=== PATIENT | male | born 1955 | race African-American/Black ===

== ENCOUNTER 2020-04-18 16:51 | Emergency (ER) | payer MEDICARE ==
[~2020-04-18] VITALS: Ht 175.3 cm; Wt 108.0 kg
--- NOTE | 2020-04-18 16:55 | PHYS DOC ---
General Adult EDM: Chief Complaint: worsen slurred speech, HTN HPI: HPI: Patient is a 64-year-old male who was sent here from [facility] due to worsening slurred speech and hypertension that he was found at 5 AM this morning. Somehow they decided to send him here more than 10 hours after. It was reported that patient went to sleep at 10:00 last night and he was at his baseline which include right-sided weakness and slurred speech. [facility] reported that his slurred speech was worsened this morning when he woke up. 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 Patient has history of diabetes, hypertension, paranoid schizophrenia. Patient denies any chest pain, no fever. Patient does have a dry cough started this morning. Patient said he did not have a stroke, he feels much better now, he wanted to be released SAMUEL back to his detention. Patient has a history of hypertension, he is on antihypertensive medication in a detention. Review of Systems: Review of Systems: Constitutional: Denies fever or chills Eyes: Denies change in visual acuity HENT: Denies nasal congestion or sore throat Respiratory: Positive for dry cough, no shortness of air. Cardiovascular: Denies chest pain or edema GI: Denies abdominal pain, nausea, vomiting, bloody stools or diarrhea : Denies dysuria Musculoskeletal: Denies back pain or joint pain Integument: Denies rash Neurologic: Denies headache, focal weakness or sensory changes Endocrine: Denies polyuria or polydipsia Lymphatic: Denies swollen glands Psychiatric: Denies depression or anxiety Heart Score: Risk Factors: Risk Factors: DM, Current or recent (<one month) smoker, HTN, HLP, family history of CAD, obesity. Risk Scores: Score 0 - 3: 2.5% MACE over next 6 weeks - Discharge Home Score 4 - 6: 20.3% MACE over next 6 weeks - Admit for Clinical Observation Score 7 - 10: 72.7% MACE over next 6 weeks - Early Invasive Strategies Physical Exam: PE: Constitutional: Well developed, well nourished, no acute distress, non-toxic appearance. [] HENT: Normocephalic, atraumatic, bilateral external ears normal, oropharynx moist, no oral exudates, nose normal. [] Eyes: PERRLA, EOMI, conjunctiva normal, no discharge. [] Neck: Normal range of motion, no tenderness, supple, no stridor. [] Cardiovascular:Heart rate regular rhythm, no murmur [] Lungs & Thorax: Bilateral breath sounds clear to auscultation [] Abdomen: Bowel sounds normal, soft, no tenderness, no masses, no pulsatile masses. [] Skin: Warm, dry, no erythema, no rash. [] Back: No tenderness, no CVA tenderness. [] Extremities: No tenderness, no cyanosis, no clubbing, ROM intact, no edema. [] Neurologic: Patient is awake alert oriented. His speech is clear, he moves all extremities without any problem the right side appears to be a little weaker than the left side which is his baseline. Psychologic: Affect normal, judgement normal, mood normal. [] Current Patient Data: Labs: Laboratory Tests Test 04/18/20 17:15 White Blood Count 6.6 x10^3/uL Red Blood Count 3.67 x10^6/uL Hemoglobin 10.5 g/dL Hematocrit 32.2 % Mean Corpuscular Volume 88 fL Mean Corpuscular Hemoglobin 29 pg Mean Corpuscular Hemoglobin Concent 33 g/dL Red Cell Distribution Width 15.0 % Platelet Count 279 x10^3/uL Neutrophils (%) (Auto) 43 % Lymphocytes (%) (Auto) 45 % Monocytes (%) (Auto) 7 % Eosinophils (%) (Auto) 4 % Basophils (%) (Auto) 1 % Neutrophils # (Auto) 2.8 x10^3uL Lymphocytes # (Auto) 2.9 x10^3/uL Monocytes # (Auto) 0.5 x10^3/uL Eosinophils # (Auto) 0.3 x10^3/uL Basophils # (Auto) 0.0 x10^3/uL Prothrombin Time 9.7 SEC Prothromb Time International Ratio 0.9 Activated Partial Thromboplast Time 27 SEC Sodium Level 138 mmol/L Potassium Level 4.1 mmol/L Chloride Level 102 mmol/L Carbon Dioxide Level 25 mmol/L Anion Gap 11 Blood Urea Nitrogen 18 mg/dL Creatinine 1.9 mg/dL Estimated GFR (Cockcroft-Gault) 36.0 BUN/Creatinine Ratio 9 Glucose Level 240 mg/dL Calcium Level 9.3 mg/dL Magnesium Level 1.9 mg/dL Total Bilirubin 0.1 mg/dL Aspartate Amino Transf (AST/SGOT) 15 U/L Alanine Aminotransferase (ALT/SGPT) 22 U/L Alkaline Phosphatase 84 U/L Troponin I Quantitative < 0.017 ng/mL WD-Nos-H-Type Natriuretic Peptide 38 pg/mL Total Protein 7.7 g/dL Albumin 3.3 g/dL Albumin/Globulin Ratio 0.8 Current Medications Medications (Trade) Dose Ordered Sig/Arnoldo Route PRN Reason Start Time Stop Time Status Last Admin Dose Admin Hydralazine HCl (Apresoline) 10 mg 1X ONCE IV 04/18/20 18:00 04/18/20 18:01 DC 04/18/20 18:08 EKG: EKG: EKG was done at 1709, heart rate of 65 bpm, normal sinus rhythm, no ST segment elevation. [] Radiology/Procedures: Radiology/Procedures: [][place] [address] IMAGING REPORT Signed PATIENT: JULIUS NICHOLSON ACCOUNT: [id number] : 1955 LOCATION: ER AGE: 64 SEX: M EXAM STATUS: PRE ER ORD. PHYSICIAN: KEILY LEON DO REASON: confusion, slurred speech, CODE STROKE PROCEDURE: CT CODE STROKE HEAD WO EXAM: CT Head without IV contrast INDICATION: Reason: confusion, slurred speech, CODE STROKE / Spl. Instructions: / History: TECHNIQUE: Multi-detector row CT images were obtained of the head without the use of IV contrast. All CT scans performed at this facility utilize dose optimization techniques as appropriate to the exam, including the following: Automated exposure control and adjustment of the mA and/or KV according to patient size (this includes techniques or standardized protocols for targeted exams where dose is indication/reason for exam). COMPARISON: None FINDINGS: BRAIN PARENCHYMA: No evidence of acute intraparenchymal hemorrhage or infarct. Generalized parenchymal volume loss and white matter low density compatible chronic ischemic microvascular changes present in association with bilateral lucencies in the basal ganglia consistent with chronic lacunar infarcts. VENTRICLES & EXTRA-AXIAL SPACES: Ventricles are enlarged in proportion to the degree of parenchymal volume loss present. Basilar cisterns are patent. No pathologic extra-axial fluid collection or mass. ORBITS: Orbital contents are unremarkable. SINUSES: Visualized paranasal sinuses and mastoid air cells are clear. OSSEOUS & SOFT TISSUES: Calvarium and skull base are intact. IMPRESSION: No acute intracranial pathology. FOR INTERNAL CODING PURPOSES Critical result: Findings discussed with KEILY LEON at 04/18/2020 5:08 PM. RESULT CODE: (C) Electronically signed by: All Simms MD (04/18/2020 5:09 PM) [id number] DICTATED AND SIGNED BY: ALL SIMMS MD DATE: 04/18/20 1709 CC: KEILY LEON DO ~ Course & Med Decision Making: Course & Med Decision Making Pertinent Labs and Imaging studies reviewed. (See chart for details) Patient is a 64-year-old man who was sent here from the detention due to worsening slow speech and hypertension. CT scan head did not show any acute problem. Patient blood pressure was elevated, he was given hydralazine in the ER, his blood pressure improved, patient want to be released from the ER SAMUEL and back to his detention. Patient denies any chest pain, no headache. Patient was talking with clear speech. Dragon Disclaimer: Glide Disclaimer: This electronic medical record was generated, in whole or in part, using a voice recognition dictation system. Departure Departure: Impression: Primary Impression: Hypertension Disposition: 01 HOME/RESIDENCE PRIOR TO ADM Condition: IMPROVED Patient Instructions: Hypertension Additional Instructions: Thank you for visiting our Emergency Department. We appreciate you trusting us with your care. If any additional problems come up don't hesitate to return to visit us. Please follow up with your primary care provider so they can plan additional care if needed and know about the problem that you had. If symptoms worsen come back to the Emergency Department. Any concerning symptoms that start such as chest pain, shortness of air, weakness or numbness on one side of the body, running high fevers or any other concerning symptoms return to the ER. Justification of Admission: Justification of Admission: Justification of Admission Dx: N/A KEILY LEON DO Apr 18, 2020 16:55
--- NOTE | 2020-04-18 17:12 | RAD ---
EXAM: CT Head without IV contrast INDICATION: Reason: confusion, slurred speech, CODE STROKE / Spl. Instructions: / History: TECHNIQUE: Multi-detector row CT images were obtained of the head without the use of IV contrast. All CT scans performed at this facility utilize dose optimization techniques as appropriate to the exam, including the following: Automated exposure control and adjustment of the mA and/or KV according to patient size (this includes techniques or standardized protocols for targeted exams where dose is indication/reason for exam). COMPARISON: None FINDINGS: BRAIN PARENCHYMA: No evidence of acute intraparenchymal hemorrhage or infarct. Generalized parenchymal volume loss and white matter low density compatible chronic ischemic microvascular changes present in association with bilateral lucencies in the basal ganglia consistent with chronic lacunar infarcts. VENTRICLES & EXTRA-AXIAL SPACES: Ventricles are enlarged in proportion to the degree of parenchymal volume loss present. Basilar cisterns are patent. No pathologic extra-axial fluid collection or mass. ORBITS: Orbital contents are unremarkable. SINUSES: Visualized paranasal sinuses and mastoid air cells are clear. OSSEOUS & SOFT TISSUES: Calvarium and skull base are intact. IMPRESSION: No acute intracranial pathology. FOR INTERNAL CODING PURPOSES Critical result: Findings discussed with KEILY LEON at 04/18/2020 5:08 PM. RESULT CODE: (C) Electronically signed by: Marci Simms MD (04/18/2020 5:09 PM) [id number]
[2020-04-18 17:38] LABS: BASO % 1 % (0-3); EOS # 0.3 x10^3/uL (0.0-0.7); EOS % 4 % (0-3); HEMATOCRIT 32.2 % (39.0-53.0); HEMOGLOBIN 10.5 g/dL (13.0-17.5); LYMPH # 2.9 x10^3/uL (1.0-4.8); LYMPH % 45 % (24-48); MEAN CORPUSCULAR HEMOGLOBIN 29 pg (25-35); MEAN CORPUSCULAR HGB CONC 33 g/dL (31-37); MEAN CORPUSCULAR VOLUME 88 fL (79-100); MONO # 0.5 x10^3/uL (0.0-1.1); MONO % 7 % (0-9); NEUT # 2.8 x10^3uL (1.8-7.7); NEUT % 43 % (31-73); PLATELET COUNT 279 x10^3/uL (140-400); RED BLOOD COUNT 3.67 x10^6/uL (4.30-5.70); WHITE BLOOD COUNT 6.6 x10^3/uL (4.0-11.0)
[2020-04-18 17:47] LABS: CALCIUM 9.3 mg/dL (8.5-10.1); CREATININE 1.9 mg/dL (0.7-1.3); POTASSIUM 4.1 mmol/L (3.5-5.1)
[2020-04-18 17:59] LABS: ALBUMIN 3.3 g/dL (3.4-5.0); ALBUMIN/GLOBULIN RATIO 0.8 (1.0-1.7); MAGNESIUM 1.9 mg/dL (1.8-2.4); TOTAL BILIRUBIN 0.1 mg/dL (0.2-1.0); TOTAL PROTEIN 7.7 g/dL (6.4-8.2)
[2020-04-18] MEDS ORDERED: hydrALAZINE 20 MG/ML VIAL. IV ONE (18:00)
--- NOTE | 2020-04-18 18:00 | EKG ---
[address] [address] Test Date: 2020-04-18 Test Time: 17:09:47 Pat Name: JULIUS NICHOLSON Department: Room: Gender: M Visual Merchandising Manager: : 1955 Requested By: KEILY LEON Order Number: [id number] Reading MD: David Good MD Measurements Intervals Steward Rate: 65 P: 69 GA: 192 QRS: 36 QRSD: 108 T: 70 QT: 402 QTc: 423 Interpretive Statements SINUS RHYTHM Electronically Signed On 04-19-2020 9:12:31 CDT by David Good MD
[2020-04-18 19:00] VITALS: BP 170/83
== END 2020-04-18 19:23 | disposition home or self-care (01) ==
LOC: ER 16:51
DX: I10 Essential (primary) hypertension (principal); E11.9 Type 2 diabetes mellitus without complications; F20.9 Schizophrenia, unspecified
CPT/HCPCS: 36415; 70450; 80053; 83735; 83880; 84484; 85025; 85610; 85730; 93005; 99285; J0360

== ENCOUNTER 2021-02-12 17:47 | Emergency (ER) | payer MEDICARE, OTHER ==
[~2021-02-12] VITALS: Ht 175.3 cm; Wt 97.6 kg
[2021-02-12] MEDS ORDERED: IBUPROFEN 600 MG TABLET. PO ONE (18:30)
[2021-02-12 18:40] LABS: BASO # 0.1 x10^3/uL (0.0-0.2); BASO % 1 % (0-3); EOS # 0.1 x10^3/uL (0.0-0.7); EOS % 1 % (0-3); HEMATOCRIT 32.4 % (39.0-53.0); HEMOGLOBIN 10.8 g/dL (13.0-17.5); LYMPH # 1.7 x10^3/uL (1.0-4.8); LYMPH % 16 % (24-48); MEAN CORPUSCULAR HEMOGLOBIN 30 pg (25-35); MEAN CORPUSCULAR HGB CONC 33 g/dL (31-37); MEAN CORPUSCULAR VOLUME 89 fL (79-100); MONO # 1.2 x10^3/uL (0.0-1.1); MONO % 11 % (0-9); NEUT # 7.4 x10^3uL (1.8-7.7); NEUT % 71 % (31-73); PLATELET COUNT 251 x10^3/uL (140-400); RED BLOOD COUNT 3.65 x10^6/uL (4.30-5.70); RED CELL DISTRIBUTION WIDTH 14.2 % (11.5-14.5); WHITE BLOOD COUNT 10.5 x10^3/uL (4.0-11.0)
[2021-02-12 18:51] LABS: ALBUMIN 4.1 g/dL (3.4-5.0); ALBUMIN/GLOBULIN RATIO 1.2 (1.0-1.7); CALCIUM 9.5 mg/dL (8.5-10.1); CREATININE 1.8 mg/dL (0.7-1.3); GFR 46.2; TOTAL BILIRUBIN 0.4 mg/dL (0.2-1.0); TOTAL PROTEIN 7.6 g/dL (6.4-8.2)
--- NOTE | 2021-02-12 19:10 | PHYS DOC ---
Past History Past Medical History: CVA, Diabetes, GERD, Glaucoma, Hypertension (JUAN MENDEZ APRN) Past Surgical History: No Surgical History Additional Past Surgical Histo: LEFT TOE AMP (JUAN MENDEZ APRN) Alcohol Use: None (JUAN MENDEZ APRN) General Adult EDM: Chief Complaint: ALTERED MENTAL STATUS HPI: HPI: Patient is a 65-year-old male who presents with altered mental status. Patient is a resident of [facility]. Staff states that patient started acting different than normal. Last known okay was about an hour before arriving in the emergency room. Patient did have a fever on arrival. Temperature was 100.6. Patient has a history of CVA with left-sided residual weakness. Staff states "he was slower to respond than normal". Patient was alert and oriented x3. Blood sugar was 180. History of diabetes, hypertension. (JUAN MENDEZ APRN) Review of Systems: Review of Systems: Constitutional: Reports fever and chills Eyes: Denies change in visual acuity HENT: Denies nasal congestion or sore throat Respiratory: Denies cough or shortness of breath Cardiovascular: Denies chest pain or edema GI: Denies abdominal pain, nausea, vomiting, bloody stools or diarrhea : Denies dysuria Musculoskeletal: Denies back pain or joint pain Integument: Denies rash Neurologic: Denies headache, focal weakness or sensory changes Endocrine: Denies polyuria or polydipsia Lymphatic: Denies swollen glands Psychiatric: Denies depression or anxiety (JUAN MENDEZ APRN) Current Medications: Current Meds: Current Medications Medications (Trade) Dose Ordered Sig/Arnoldo Start Time Stop Time Status Last Admin Dose Admin Ibuprofen (Motrin) 600 mg 1X ONCE 02/12/21 18:30 02/12/21 18:31 DC Lorazepam (Ativan Inj) 1 mg 1X ONCE 02/12/21 19:00 02/12/21 19:03 DC (JUAN MENDEZ APRN) Allergies: Allergies: Allergies Coded Allergies Type Severity Reaction Last Updated Verified No Known Drug Allergies 04/18/20 No (JUAN MENDEZ APRN) Physical Exam: PE: Constitutional: Well developed, well nourished, no acute distress, non-toxic appearance. [] HENT: Normocephalic, atraumatic, bilateral external ears normal, oropharynx moist, no oral exudates, nose normal. [] Eyes: PERRLA, EOMI, conjunctiva normal, no discharge. [] Neck: Normal range of motion, no tenderness, supple, no stridor. [] Cardiovascular:Heart rate regular rhythm, no murmur [] Lungs & Thorax: Bilateral breath sounds clear to auscultation [] Abdomen: Bowel sounds normal, soft, no tenderness, no masses, no pulsatile masses. [] Skin: Warm, dry, no erythema, no rash. [] Back: No tenderness, no CVA tenderness. [] Extremities: No tenderness, no cyanosis, no clubbing, ROM intact, no edema. [] Neurologic: Alert and oriented X 3, normal motor function, normal sensory function, left-sided weakness from previous CVA Psychologic: Affect normal, judgement normal, mood normal. [] (JUAN MENDEZ APRN) Current Patient Data: Labs: Laboratory Tests Test 02/12/21 18:03 White Blood Count 10.5 x10^3/uL (4.0-11.0) Red Blood Count 3.65 x10^6/uL (4.30-5.70) L Hemoglobin 10.8 g/dL (13.0-17.5) L Hematocrit 32.4 % (39.0-53.0) L Mean Corpuscular Volume 89 fL (79-100) Mean Corpuscular Hemoglobin 30 pg (25-35) Mean Corpuscular Hemoglobin Concent 33 g/dL (31-37) Red Cell Distribution Width 14.2 % (11.5-14.5) Platelet Count 251 x10^3/uL (140-400) Neutrophils (%) (Auto) 71 % (31-73) Lymphocytes (%) (Auto) 16 % (24-48) L Monocytes (%) (Auto) 11 % (0-9) H Eosinophils (%) (Auto) 1 % (0-3) Basophils (%) (Auto) 1 % (0-3) Neutrophils # (Auto) 7.4 x10^3uL (1.8-7.7) Lymphocytes # (Auto) 1.7 x10^3/uL (1.0-4.8) Monocytes # (Auto) 1.2 x10^3/uL (0.0-1.1) H Eosinophils # (Auto) 0.1 x10^3/uL (0.0-0.7) Basophils # (Auto) 0.1 x10^3/uL (0.0-0.2) Sodium Level 142 mmol/L (136-145) Potassium Level 4.0 mmol/L (3.5-5.1) Chloride Level 104 mmol/L (98-107) Carbon Dioxide Level 25 mmol/L (21-32) Anion Gap 13 (6-14) Blood Urea Nitrogen 17 mg/dL (8-26) Creatinine 1.8 mg/dL (0.7-1.3) H Estimated GFR (Cockcroft-Gault) 46.2 BUN/Creatinine Ratio 9 (6-20) Glucose Level 138 mg/dL (70-99) H Calcium Level 9.5 mg/dL (8.5-10.1) Total Bilirubin 0.4 mg/dL (0.2-1.0) Aspartate Amino Transferase (AST) 13 U/L (15-37) L Alanine Aminotransferase (ALT) 18 U/L (16-63) Alkaline Phosphatase 83 U/L (46-116) Total Protein 7.6 g/dL (6.4-8.2) Albumin 4.1 g/dL (3.4-5.0) Albumin/Globulin Ratio 1.2 (1.0-1.7) Vital Signs: Vital Signs Date Time Temp Pulse Resp B/P (MAP) Pulse Ox O2 Delivery O2 Flow Rate FiO2 02/12/21 18:35 100.6 98 18 164/76 (105) 98 Room Air (JUAN MENDEZ APRN) EKG: EKG: [] (JUAN MENDEZ APRN) Radiology/Procedures: Radiology/Procedures: []Exam Date: 02/12/2021 7:[address] HEAD/BRAIN WO Indication: Reason: AMS / Spl. Instructions: / History: . TECHNIQUE: Head CT was performed without intravenous contrast. One or more of the following dose reduction techniques were utilized: *Automated exposure control (AEC) *Adjustment of mA and/or kV according to patient size *Use of iterative reconstruction technique *CT scan done according to ALARA, or ALARA/IMAGE GENTLY COMPARISON: April 18, 2020 FINDINGS: The ventricles and sulci are prominent consistent with cerebral volume loss. Patchy ill-defined low attenuation areas in the subcortical and periventricular white matter bilaterally are consistent with microvascular disease. There is no evidence of acute intracranial hemorrhage, extra-axial collection, mass effect, midline shift, or acute territorial infarct. No lesion of the skull base or the calvarium is seen. The visualized paranasal sinuses, mastoid air cells and orbits are normal in appearance. IMPRESSION: No evidence for acute intracranial abnormality. Volume loss and microvascular disease. Electronically signed by: Spenser Meneses MD (02/12/2021 7:26 PM) [facility] (JUAN MENDEZ APRN) Heart Score: C/O Chest Pain: No Risk Factors: Risk Factors: DM, Current or recent (<one month) smoker, HTN, HLP, family history of CAD, obesity. Risk Scores: Score 0 - 3: 2.5% MACE over next 6 weeks - Discharge Home Score 4 - 6: 20.3% MACE over next 6 weeks - Admit for Clinical Observation Score 7 - 10: 72.7% MACE over next 6 weeks - Early Invasive Strategies (JUAN MENDEZ APRN) Course & Med Decision Making: Course & Med Decision Making Pertinent Labs and Imaging studies reviewed. (See chart for details) [] 65-year-old male [facility] Staff is stating that patient was acting slower to respond than normal. Patient is alert and oriented. Patient has left-sided weakness from previous CVA. No new deficits noted. Creatinine was 1.8. No change from a year ago. CT of head was negative for any acute abnormalities. UA was positive for leuks. Patient diagnosed with UTI. Sending patient home with a prescription for Bactrim. Patient given 1 dose prior to discharge. [facility] Patient is hemodynamically stable. (JUAN MENDEZ APRN) Dragon Disclaimer: Dragon Disclaimer: This electronic medical record was generated, in whole or in part, using a voice recognition dictation system. (JUAN MENDEZ APRN) Departure Departure: Impression: Primary Impression: UTI (urinary tract infection) Qualified Codes: N30.00 - Acute cystitis without hematuria Additional Impression: Altered mental status Qualified Codes: R41.82 - Altered mental status, unspecified Disposition: 01 HOME / SELF CARE / HOMELESS Condition: STABLE Referrals: RAJ FIGUEROA DO (PCP) Patient Instructions: Urinary Tract Infection, [id number] Additional Instructions: Your seen in the emergency room for altered mental status. Your urine was positive for a UTI. Sending you home with prescription for Bactrim. You were given 1 dose in the emergency room prior to discharge. Continue using Tylenol and ibuprofen for fever control. Your temperature before discharge was 99.1. These return emergency room with worsening symptoms or concerns EMERGENCY DEPARTMENT GENERAL DISCHARGE INSTRUCTIONS Thank you for coming to [facility] (ED) today and trusting us with you care. We trust that you had a positivie experience in our Emergency Department. If you wish to speak to the department management, you may call the director at [phone]. YOUR FOLLOW UP INSTRUCTIONS ARE FOLLOWS: 1. Do you have a private Doctor? If you do not have a private doctor, please ask for a resource list of physicians or clinics that may be able to assist you with follow up care. 2. The Emergency Physician has interpreted your x-rays. The X-Ray specialist will also review them. If there is a change in the findings, you will be notified in 48 hours when at all possible. 3. A lab test or culture has been done, your results will be reviewed and you will be notified if you need a change in treatment. ADDITIONAL INSTRUCTIONS AND INFORMATION: 1. Your care today has been supervised by a physician who is specially trained in emergency care. Many problems require more than one evaluation for a complete diagnosis and treatment. We recommend that you schedule your follow up appointment as recommended to ensure complete treatment of you illness or injury. If you are unable to obtain follow up care and continue to have a problem, or if your condition worsens, we recommend that you return to the ED. 2. We are not able to safely determine your condition over the phone nor are we able to give sound medical advice over the phone. For these safety reasons, if you call for medical advice we will ask you to come to the ED for further evaluation. 3. If you have any questions regarding these discharge instructions please call the ED at [phone]. SAFETY INFORMATION: In the interest of safety, wellness, and injury prevention; we encourage you to wear your sealbelt, if you smoke; quite smoking, and we encourage family to use a protective helmet for bicycling and other sporting events that present an increased risk for head injury. IF YOUR SYMPTOMS WORSEN OR NEW SYMPTOMS DEVELOP, OR YOU HAVE CONCERNS ABOUT YOUR CONDITION; OR IF YOUR CONDITION WORSENS WHILE YOU ARE WAITING FOR YOUR FOLLOW UP APPOINTMENT; EITHER CONTACT YOUR PRIMARY CARE DOCTOR, THE PHYSICIAN WHOSE NAME AND NUMBER YOU WERE GIVEN, OR RETURN TO THE ED IMMEDIATELY. Scripts Sulfamethoxazole/Trimethoprim (BACTRIM DS TABLET) 1 Each Tablet 1 EACH PO BID for uti for 7 Days, #13 TAB Prov: JUAN MENDEZ APRN 02/12/21 Attending Signature Attending Signature I have participated in the care of this patient and I have reviewed and agree with all pertinent clinical information above including history, exam, and recommendations. (JULIA TORRES MD) JUAN MENDEZ APRN Feb 12, 2021 19:10 JULIA TORRES MD Feb 13, 2021 11:27
--- NOTE | 2021-02-12 19:28 | RAD ---
Exam Date: 02/12/2021 7:[address] HEAD/BRAIN WO Indication: Reason: AMS / Spl. Instructions: / History: . TECHNIQUE: Head CT was performed without intravenous contrast. One or more of the following dose re duction techniques were utilized: *Automated exposure control (AEC) *Adjustment of mA and/or kV according to patient size *Use of iterative reconstruction technique *CT scan done according to ALARA, or ALARA/IMAGE GENTLY COMPARISON: April 18, 2020 FINDINGS: The ventricles and sulci are prominent consistent with cerebral volume loss. Patchy ill-defined low attenuation areas in the subcortical and periventricular white matter bilaterally are consistent with microvascular disease. There is no evidence of acute intracranial hemorrhage, extra-axial collecti on, mass effect, midline shift, or acute territorial infarct. No lesion of the skull base or the calv arium is seen. The visualized paranasal sinuses, mastoid air cells and orbits are normal in appearanc e. IMPRESSION: No evidence for acute intracranial abnormality. Volume loss and microvascular disease. Electronically signed by: Spenser Meneses MD (02/12/2021 7:26 PM) [facility]
[2021-02-12 20:01] LABS: BILIRUBIN,URINE NEG (NEG); CLARITY,URINE HAZY; COLOR,URINE YELLOW; GLUCOSE,URINE NEG (NEG)
[2021-02-12 20:02] LABS: NITRITE,URINE NEG (NEG)
[2021-02-12 20:09] LABS: RBC,URINE RARE /HPF (0-2)
[2021-02-12 20:10] LABS: BACTERIA,URINE MANY /HPF (0-FEW); WBC,URINE >40 /HPF (0-4)
[2021-02-12] MEDS ORDERED: SULF1TAB24 PO (20:19)
[2021-02-12] MEDS ORDERED: SMZ/TMP 800/160MG TABLET. PO ONE (21:15)
[2021-02-12 21:55] VITALS: BP 116/58
== END 2021-02-12 21:53 | disposition home or self-care (01) ==
LOC: ER 17:47
DX: N30.00 Acute cystitis without hematuria (principal); R41.82 Altered mental status, unspecified; K21.9 Gastro-esophageal reflux disease without esophagitis; E11.39 Type 2 diabetes mellitus with other diabetic ophthalmic complication; H40.9 Unspecified glaucoma; I10 Essential (primary) hypertension; Z86.73 Personal history of transient ischemic attack (TIA), and cerebral infarction without residual deficits
CPT/HCPCS: 36415; 70450; 80053; 81001; 82947; 85025; 87086; 99285-25

== ENCOUNTER 2021-08-01 03:52 | Emergency (ER) | payer MEDICARE, OTHER ==
[~2021-08-01] VITALS: Ht 175.3 cm; Wt 100.6 kg
[~2021-08-01 03:52] MED LIST: SULF1TAB24 PO
--- NOTE | 2021-08-01 04:07 | PHYS DOC ---
Past History Past Medical History: CVA, Diabetes, GERD, Glaucoma, Hypertension Past Surgical History: No Surgical History Additional Past Surgical Histo: LEFT TOE AMP Alcohol Use: None Adult General Chief Complaint Chief Complaint: MECHANICAL FALL HPI HPI Patient is a 66-year-old male with a past medical history significant for stroke and insulin-dependent diabetes who lives at a custodial who presents from the custodial after a fall. Per custodial report, patient was getting out of bed to go to the restroom, slipped and fell and started complaining of hip and shoulder pain. Nursing staff also stated that he felt warm, they took a temperature and it was 100.3 and was given Tylenol. Patient denies any recent travels, other traumas, fevers, sore throat, chest pain, shortness of breath, cough, abdominal pain, nausea, vomiting, diarrhea. Denies any known ill contacts. States he had Covid last year and is also had his Covid vaccination. States that his right shoulder has pain 5 out of 10, dull and achy with no radiation that has been going on for quite some time but seems a little worse tonight after the fall and left-sided hip and leg pain 6 out of 10, dull and achy in nature which started tonight after the fall. Denies any numbness/weakness/tingling that is new. Review of Systems Review of Systems Review of systems otherwise unremarkable except noted in HPI Allergies Allergies Allergies Coded Allergies Type Severity Reaction Last Updated Verified lisinopril Allergy Unknown 08/01/21 Yes pravastatin Allergy Unknown 08/01/21 Yes simvastatin Allergy Unknown 08/01/21 Yes Physical Exam Physical Exam Constitutional: Well developed, well nourished, no acute distress, non-toxic appearance. [] HENT: Normocephalic, atraumatic, bilateral external ears normal, oropharynx moist, no oral exudates, nose normal. [] Eyes: conjunctiva normal, no discharge. [] Neck: Normal range of motion, no tenderness, Cardiovascular:Heart rate regular rhythm, no murmur [] Lungs & Thorax: Bilateral breath sounds clear to auscultation [] Abdomen: soft, no tenderness, no masses, no pulsatile masses. [] Skin: Warm, dry, no erythema, no rash. [] Back: No tenderness, Extremities: Tenderness around left hip and femur with no obvious deformities, bruising or swelling. Mild tenderness on passive range of motion of right shoulder with no obvious deformities, bruising or decreases in range of motion. Neurovascular exam intact Neurologic: Alert and oriented X 3, normal motor function, normal sensory function, no focal deficits noted. [] Psychologic: Affect normal, judgement normal, mood normal. [] Current Patient Data Vital Signs Vital Signs Date Time Temp Pulse Resp B/P (MAP) Pulse Ox O2 Delivery O2 Flow Rate FiO2 08/01/21 03:58 98.6 92 14 138/73 (94) 95 Room Air EKG EKG [] Radiology/Procedures Radiology/Procedures [] Heart Score C/O Chest Pain: No Risk Factors: Risk Factors: DM, Current or recent (<one month) smoker, HTN, HLP, family h istory of CAD, obesity. Risk Scores: Risk Factors: DM, Current or recent (<one month) smoker, HTN, HLP, family history of CAD, obesity. Course & Med Decision Making Course & Med Decision Making Patient is a 66-year-old male who presents after a fall at the custodial with hip and shoulder pain Vital signs not concerning. Physical exam noted above. Given pain medicine. Given ice pack. Placed on the monitor. Imaging with no acute osseous abnormalities. Discussed all findings with patient. Advised to follow-up in the morning with primary care physician. Advised on symptom control at home. Gave return precautions to the ED. Patient grateful, verbalized understanding and agreed with plan of discharge. Dragon Disclaimer Dragon Disclaimer This electronic medical record was generated, in whole or in part, using a voice recognition dictation system. Departure Departure: Impression: Primary Impression: Fall Disposition: 03 RESIDENTIAL FACILITY Condition: IMPROVED Referrals: RAJ FIGUEROA DO (PCP) Patient Instructions: Fall Prevention and Home Safety, RICE - Routine Care for Injuries Additional Instructions: Thank you for coming into the emergency department tonight and allowing us to take care of you. Please read the attached information carefully to go back over some of the things we discussed. You can continue Tylenol as needed for pain. If you are not allergic to ibuprofen and are allowed to take it and tolerate it you can also add ibuprofen. Please use ice as well as needed. Please follow-up with your doctor first thing this morning to update on your ED visit and set up a follow-up. Please come back with new or concerning symptoms as we discussed. HILDA LOCO MD Aug 01, 2021 04:07
[2021-08-01] MEDS ORDERED: ACETAMINOPHEN 500 MG TABLET PO ONE (04:15)
--- NOTE | 2021-08-01 05:13 | RAD ---
XR HIP (WITH OR WITHOUT PELVIS) 1 VIEW, XR FEMUR_LEFT 1 VIEW DATE: 08/01/2021 4:36 AM INDICATION: fall COMPARISON: None. FINDINGS: Bones: There is no evidence of acute fracture or dislocation. Joints: The joint spaces are normal. Miscellaneous: None. IMPRESSION: No evidence of acute fracture. Electronically signed by: Babar Nowak MD (08/01/2021 5:10 AM) SANDIE
--- NOTE | 2021-08-01 05:14 | RAD ---
XR SHOULDER_RIGHT 2+ VIEWS DATE: 08/01/2021 4:36 AM INDICATION: fall, pain COMPARISON: None. FINDINGS: Bones: There is no evidence of acute fracture or dislocation. Joints: The joint spaces are normal. The acromiohumeral distance is not narrowed. Miscellaneous: No abnormal soft tissue calcifications in the shoulder. IMPRESSION: No evidence of acute fracture. Electronically signed by: Babar Nowak MD (08/01/2021 5:11 AM) SANDIE
[2021-08-01 05:25] VITALS: BP 139/72
== END 2021-08-01 05:46 ==
LOC: ER 03:52
DX: M25.552 Pain in left hip (principal); M25.511 Pain in right shoulder; E11.39 Type 2 diabetes mellitus with other diabetic ophthalmic complication; K21.9 Gastro-esophageal reflux disease without esophagitis; I10 Essential (primary) hypertension; Z86.73 Personal history of transient ischemic attack (TIA), and cerebral infarction without residual deficits; Z88.8 Allergy status to other drugs, medicaments and biological substances; W01.0XXA Fall on same level from slipping, tripping and stumbling without subsequent striking against object, initial encounter; Y93.89 Activity, other specified; Y92.89 Other specified places as the place of occurrence of the external cause; Y99.8 Other external cause status
CPT/HCPCS: 73030; 73521; 73552; 99284